=== PATIENT | female | born 1975 | race Caucasian/White ===

== ENCOUNTER 2022-12-27 07:18 | Observation (INO) ==
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
[~2022-12-27 07:18] MED LIST: LACTATED RINGER'S 1,000 ML IV SCH; LR 15ML/HR IV SCH; ceFAZolin 2000MG 2,000 MG/15 ML SYR IV SCH
[2022-12-27] MEDS ORDERED: FLUMAZENIL 0.1 MG/1 ML 10 ML VIAL IV PRN (08:23)
[2022-12-27] MEDS ORDERED: ePHEDrine sulfate 50 MG/ML AMP IV PRN (08:23)
[2022-12-27] MEDS ORDERED: ATROPINE SULFATE 0.1 MG/ML 10ML SYR IV PRN (08:23)
[2022-12-27] MEDS ORDERED: NALOXONE HCL 0.4 MG/1 ML VIAL/CARP IV PRN (08:23)
[2022-12-27] MEDS ORDERED: PROMETHAZINE HCL 12.5 MG in SODIUM CHLORIDE 0.9% 50 ML IV PRN ×2 (08:23→22:27)
[2022-12-27] MEDS ORDERED: ONDANSETRON INJ 2 MG/ML 2 ML VIAL IV PRN (08:23)
[2022-12-27] MEDS ORDERED: LABETALOL HCL IV 5 MG/ML 20ML IV PRN (08:23)
[2022-12-27] MEDS ORDERED: KETOROLAC 30 MG/ML VIAL ONE (08:31)
[2022-12-27] MEDS ORDERED: MIDAZOLAM HCL 1 MG/ML 2ML VIAL ONE (08:31)
[2022-12-27] MEDS ORDERED: PROPOFOL IV EMULSION 10 MG/ML 20 ML VIAL IV ONE (08:31)
[2022-12-27] MEDS ORDERED: fentaNYL citrate PF 100 MCG/2 ML VIAL ONE ×2 (08:31→10:26)
[2022-12-27] MEDS ORDERED: ONDANSETRON INJ 2 MG/ML 2 ML VIAL ONE (08:31)
[2022-12-27] MEDS ORDERED: LIDOCAINE 2% 2 ML VIAL/AMP(20MG/ML) INFIL ONE (08:31)
[2022-12-27] MEDS ORDERED: ROCURONIUM BROMIDE 10 MG/ML 5 ML VIAL IV ONE ×2 (08:31→10:26)
[2022-12-27] MEDS ORDERED: DEXAMETHASONE SOD INJ 4 MG/ML VIAL ONE (08:31)
[2022-12-27] MEDS ORDERED: BUPIVACAINE/EPINEPHRINE 0.5% MPF 1:200,000 30 ML VIAL ONE (09:05)
[2022-12-27] MEDS ORDERED: SCOPOLAMINE 1 MG TDSY TD ONE ×2 (09:19→09:23)
--- NOTE | 2022-12-27 09:22 | History & Physical Bridge Note ---
Date of Service December 27, 2022 History & Physical Bridge Note I have examined the patient, reviewed the History & Physical and in the interval since the performance of the History & Physical I have noted the following changes of clinical significance: no changes noted
[2022-12-27] MEDS ORDERED: ACETAMINOPHEN 1000 MG/100 ML IV IV ONE (09:27)
[2022-12-27] MEDS ORDERED: SUGAMMADEX SODIUM 200 MG/2 ML VIAL IV ONE (10:24)
[2022-12-27] MEDS ORDERED: FLOSEAL HEMOSTATIC MATRIX 10ML TOP ONE (10:55)
[2022-12-27] MEDS ORDERED: MAGNESIUM HYDROXIDE SUSP 30 ML UDC PO PRN (11:59)
[2022-12-27] MEDS ORDERED: oxyCODONE/ACETAMINOPHEN 5mg/325mg TAB PO PRN ×2 (11:59)
[2022-12-27] MEDS ORDERED: ZOLPIDEM TARTRATE 5 MG TAB PO PRN (11:59)
[2022-12-27] MEDS ORDERED: IBUPROFEN 600 MG TAB PO PRN (11:59)
[2022-12-27] MEDS: fentaNYL citrate PF 100 MCG/2 ML VIAL IV PRN ×3 (12:10→12:20)
[2022-12-27] MEDS: LACTATED RINGER'S 1,000 ML IV SCH (13:12)
--- NOTE | 2022-12-27 13:26 | Anesthesiology Progress Note ---
Date of Service December 27, 2022 Anesthesia Post Procedure Vital Signs Vital Signs: Temp Pulse Pulse Resp BP Pulse Ox O2 Del Method 12/27/22 12:50 79 15 105/60 97 Room Air 12/27/22 12:40 36.6 C 80 12 100/65 95 Room Air 12/27/22 12:30 82 18 105/73 94 Room Air 12/27/22 12:20 88 17 94/69 L 97 Room Air 12/27/22 12:10 77 15 104/64 96 Room Air 12/27/22 12:00 87 15 107/63 97 Room Air 12/27/22 11:50 36.4 C L 112 H 20 114/81 98 Room Air 12/27/22 07:48 Room Air 12/27/22 07:48 36.8 C 82 18 124/63 100 Room Air Pain Intensity Abdomen: Pain Intensity: 4 Transfer of Care Handoff Completed per policy Notes Mental Status: alert / awake / arousable Patient Amnestic to Procedure: Yes Nausea / Vomiting: adequately controlled Pain: adequately controlled Airway Patency, RR, SpO2: stable & adequate BP & HR: stable & adequate Hydration State: stable & adequate Anesthetic Complications: no major complications apparent
--- NOTE | 2022-12-27 15:06 | Operative Report ---
Post Operative Report Pre & Post Diagnosis Operation Date: 12/27/22 09:20 Pre-Op Diagnosis: Irregular Bleeding, Fibroids, breast cancer Post-Op Diagnosis: Irregular Bleeding, Fibroids. breast Cancer I identified the patient and participated in the time-out.: Yes Procedure Operation Date: 12/27/22 09:20 Actual Procedures p Total Laparoscopic Hysterectomy, Bilateral Salpingo-Oophorectomy, lysis of adhesions and (Not Applicable) - Rey Doran MD s Cystoscopy(Not Applicable) - Rey Doran MD Surgeon Rey Doran MD Strapping Machine Operator [place] Estimated Blood Loss 10 Findings Consistent with Post-Op Diagnosis Normal female vulva vagina laparoscopy showed adhesion of the omentum to the anterior abdominal wall. Uterus both fallopian tubes and ovaries however appear grossly normal. Uterus is about 10 weeks size. Appendix is identified and appeared to be normal. Uterosacrals and ureters identified Fluids IVF; 1500 Urine Out put: 200 EBL; 10 Specimens Uterus with cervix. Left and right fallopian tubes and ovaries. Drains None Anesthesia Type General Complications None Indications This is a 47-year-old status post breast cancer diagnosis. Patient had history of fibroid uterus and menorrhagia patient wanted to have hysterectomy done before starting radiation therapy. Description of Procedure FINDINGS: DESCRIPTION OF PROCEDURE: The patient was prepped and draped in normal sterile fashion in the dorsal lithotomy position. Bray catheter was placed without difficulty. An Advincula uterine manipulator was placed in the uterus to help with colpotomy. Attention was paid to the abdominal part of the procedure where a supraumbilical incision was made and carried down to the fascia. Tammie was used to grab the fascia. Veress needle was introduced into the abdomen at a 45-degree angle while tenting up the abdomen. Intra-abdominal placement was confirmed with a water-filled syringe. A water drop and suction test was performed. The abdomen was insufflated with CO2 gas. The Veress needle was removed and a 5 mm non bladed trocar was attached to a laparoscope was introduced into the abdomen under direct visualization. This was a non bladed trocar. Once inside the abdomen, laparoscope was repositioned. Inspection of the abdomen shows the findings as dictated above. Three more accessory ports were placed, two 5 mm accessory ports were placed in the lower abdomen on the contralateral side, in addition, an 11 mm trocar was placed on the left upper quadrant. General inspection of the abdomen and pelvis was performed as dictated above. There was an adhesion of omentum to the umbilicus. This omentum was examined. There was no bowel in the omentum, so the LigaSure was passed through one of the contralateral port and dissection of the omentum from the abdominal wall was performed. There was good hemostasis. Left and right fallopian tubes, the ureters, uterosacrals, bowels, appendix were examined and identified. LigaSure was passed through the left accessory port. The fallopian tube was identified and grabbed 4 cm from the cornua of the uterus with the LigaSure and transected. This was followed by opening of the left anterior leaf of the broad ligament. This allowed for fenestration of the posterior left broad ligament. The mid-section of the left fallopian tube, utero-ovarian and meso-ovarian pedicles were transected as well. Same procedure was performed on the contralateral side. The anterior broad ligament dissection was carried to the mid-section of the vesicouterine peritoneum over the bladder using the Harmonic scalpel. Same procedure was carried out on the contralateral side. The posterior broad ligament peritoneum was carefully dissected also from both sides over the uterosacral arch in order to displace the ureters laterally. Using traction and countertraction, the [place] retractor and irrigation probe was used to further dissect the bladder off the lower segment of the uterus. Bladder pillars and pubovesical fascia was dissected as well. Harmonic scalpel was used to obtain hemostasis where needed. Uterine manipulator was now palpable over the vaginal tissue. The right uterine pedicles were skeletonized and coagulated with the LigaSure. Good hemostasis was obtained. Same procedure was performed on the contralateral side. Cardinal ligaments were transected on both sides. Once good hemostasis was obtained, colpotomy was performed using the LigaSure hook from both sides. Uterus was removed through the vagina while still attached to the uterine manipulator. The bulb was attached to the uterine manipulator was reinserted into the vagina to establish pneumoperitoneum. With a grasper, the remaining section of the left ovary and tube were positioned anteromedially. Both tube and ovary was removed. Same procedure was performed on both sides. EndoStitch closure device was passed through the 11 mm port on the left. Using the [place] grasper for traction, colpotomy closure was performed. The uterosacral ligaments incorporated into the closure in order to decrease the risk of prolapse. Lapro ties were used with the EndoStitch. The 11-mm trocar site was closed with a Que-Kincaid under direct visualization. Attention was paid to the cystoscopy part of the procedure where a cystoscope was introduced into the bladder. There are no sutures seen in the bladder. There were no gross blood seen in the bladder as well. The bubble sign is noted showing the bladder was a close cavity. Both ureters were seen and there was efflux from both uterus. The skin incisions are closed with Dermabond, except for the 11-mm trocar site, which was closed with 4-0 Monocryl. The patient was returned to recovery in stable condition. Inspection of the vagina shows the vaginal cuff was intact. All instruments were removed from the vagina and the bladder and accounted for x2. Strapping Machine Operator was necessary for retraction and manipulation of instruments in order to provide for a safe operationI attest to the content of the Intraoperative Record and any orders documented therein. Any exceptions are noted below.
[2022-12-27] MEDS ORDERED: CHECK SCOPOLAMINE PATCH PLACEMENT SCH (16:00)
[2022-12-27] MEDS: IBUPROFEN 800 MG TAB PO PRN (18:24)
[2022-12-27] MEDS: ONDANSETRON INJ 2 MG/ML 2 ML VIAL IV PRN (18:24)
[2022-12-27] MEDS: SIMETHICONE 80 MG CHEW PO PRN (19:59)
[2022-12-27] MEDS: ACETAMINOPHEN 325 MG TAB PO PRN (22:56)
[2022-12-28] MEDS: DOCUSATE SODIUM 100 MG CAP PO SCH ×2 (02:38→07:36)
[2022-12-28] MEDS: IBUPROFEN 800 MG TAB PO PRN ×2 (04:13→07:37)
[2022-12-28] MEDS: LACTATED RINGER'S 1,000 ML IV SCH (04:15)
[2022-12-28] MEDS: ACETAMINOPHEN 325 MG TAB PO PRN ×2 (06:05→09:59)
[2022-12-28 07:05] LABS: Basophils # (auto) 0.03 K/uL (0.00-0.20); Basophils % (auto) 0.2 %; Eosinophils # (auto) 0.05 K/uL (0.00-0.50); Eosinophils % (auto) 0.4 %; Hematocrit (blood only) 31.4 % (37.0-47.0); Hemoglobin 11.2 g/dl (12.0-16.0); Immature Granulocytes # (auto) 0.05 K/uL (0.01-0.20); Immature Granulocytes % (auto) 0.4 %; Lymphocytes % (auto) 17.4 %; Mean Corpuscular Hemoglobin 32.3 pg (25.0-34.0); Mean Corpuscular Hgb Conc 35.7 g/dL (32.0-36.0); Mean Corpuscular Volume 90.5 fL (80.0-100.0); Mean Platelet Volume 9.9 fL (9.4-12.4); Monocytes # (auto) 1.11 K/uL (0.11-0.59); Monocytes % (auto) 9.2 %; Neutrophils # (auto) 8.72 K/uL (1.40-6.50); Neutrophils % (auto) 72.4 %; Platelet Count 181 K/uL (130-400); RDW Coefficient of Variation 12.3 % (11.5-14.5); Red Blood Count 3.47 M/uL (4.20-5.40); White Blood Count 12.06 K/ul (4.8-10.8)
[2022-12-28 07:30] LABS: Calcium 7.9 mg/dl (8.6-10.3); Est GFR (African American) 122.2 ml/min; Est GFR (Non-African American) 105.4 ml/min; Potassium 3.5 mmol/L (3.5-5.1)
[2022-12-28] MEDS: ONDANSETRON INJ 2 MG/ML 2 ML VIAL IV PRN (07:52)
--- NOTE | 2022-12-28 09:08 | Gynecologic Progress Note ---
Date of Service December 28, 2022 Assessment & Plan Admission and Anticipated Discharge Date Admission Date: December 27, 2022 Subjective Postop day # 1 Patient is seen and examined Feels sore in abdomen She has not taken Oxycodone, it makes her sick and she will not take it She has been taking Motrin and Tylenol for pain OOB to BR but not hallway. Tolerating clears and crackers. Flatus + Explained about the surgery and findings Shown her pictures from [facility] Vital Signs Temp Pulse Resp BP Pulse Ox O2 Del Method 12/28/22 07:45 37.2 C 78 18 108/65 99 Room Air 12/28/22 03:14 37.4 C 81 18 108/72 98 Room Air 12/27/22 22:56 37.2 C 81 18 108/59 L 98 Room Air Lab Results 12/27/22 12/27/22 12/28/22 Range/Units 07:45 07:50 05:43 WBC 12.06 H (4.8-10.8) K/ul RBC 3.47 L (4.20-5.40) M/uL Hgb 11.2 L (12.0-16.0) g/dl Hct 31.4 L (37.0-47.0) % MCV 90.5 (80.0-100.0) fL MCH 32.3 (25.0-34.0) pg MCHC 35.7 (32.0-36.0) g/dL RDW Std Deviation 40.0 (36.4-46.3) fL RDW Coeff of Asim 12.3 (11.5-14.5) % Plt Count 181 (130-400) K/uL MPV 9.9 (9.4-12.4) fL Immature Gran % (Auto) 0.4 % Neut % (Auto) 72.4 % Lymph % (Auto) 17.4 % Windham % (Auto) 9.2 % Eos % (Auto) 0.4 % Baso % (Auto) 0.2 % Neut # (Auto) 8.72 H (1.40-6.50) K/uL Lymph # (Auto) 2.10 (1.20-3.40) K/uL Windham # (Auto) 1.11 H (0.11-0.59) K/uL Eos # (Auto) 0.05 (0.00-0.50) K/uL Baso # (Auto) 0.03 (0.00-0.20) K/uL Immature Gran # (Auto) 0.05 (0.01-0.20) K/uL Sodium 140 (136-145) mmol/L Potassium 3.5 (3.5-5.1) mmol/L Chloride 112 H (98-107) mmol/L Carbon Dioxide 22 (21-32) mmol/L Anion Gap 6 (3-11) BUN 6 (6-23) mg/dl Creatinine 0.67 (0.6-1.2) mg/dl Est Cr Clr Drug Dosing 86.0 ml/min Est GFR ( Amer) 122.2 ml/min Est GFR (Non-Af Amer) 105.4 ml/min BUN/Creatinine Ratio 9.0 L (10-20) Glucose 96 (70-99(Fasting)) mg/dl Calcium 7.9 L (8.6-10.3) mg/dl POC Ur Test NEG (NEG) Blood Type A Negative Antibody Screen NEGATIVE PE: General: Alert, orientedx3, NAD CVS: S1S2 RRR Lungs: CTAB Abd: soft, tender, ND, BS+, Incisions C/D/I No VB Ext: NT, no edema/ erythema AP: 47 yo female s/p TLH, NEHEMIAS, CHITO , pod# VSS Afebrile doing well Continue to routine postop care Encourage PO intake, may ambulate Anticipate DC today when meeting criteria. Results & Data Vital Signs (Past 12 Hours) Vital Signs Temp Pulse Resp BP Pulse Ox O2 Del Method 12/28/22 07:45 37.2 C 78 18 108/65 99 Room Air 12/28/22 03:14 37.4 C 81 18 108/72 98 Room Air 12/27/22 22:56 37.2 C 81 18 108/59 L 98 Room Air
[2022-12-28] MEDS: SIMETHICONE 80 MG CHEW PO PRN (09:12)
== END 2022-12-28 11:12 | disposition home or self-care (01) ==
LOC: 4E1 07:18 → ASU 07:18